=== PATIENT | female | born 1930 | race Caucasian/White ===

== ENCOUNTER 2017-02-21 14:44 | Emergency (ER) | payer MEDICARE, OTHER ==
[~2017-02-21] VITALS: Ht 157.5 cm; Wt 68.0 kg
[2017-02-21 14:47] VITALS: BP 185/80; PULSE 80; RESP 18; TEMP 98.1; O2SAT 97
[2017-02-21 15:08] VITALS: BP 177/72; PULSE 71; RESP 20; O2SAT 97
[2017-02-21] MEDS ORDERED: OMEP40CA2 PO (15:20)
[2017-02-21] MEDS ORDERED: FLUT50SP EACH NARE (15:20)
[2017-02-21] MEDS ORDERED: ALPR.25 PO (15:20)
[2017-02-21] MEDS ORDERED: BENA40TA PO (15:20)
[2017-02-21] MEDS ORDERED: PRAV20TA2 PO (15:20)
[2017-02-21] MEDS ORDERED: AMLO5TAB2 PO (15:20)
[2017-02-21 15:51] LABS: BLOOD, URINE NEG (NEG); GLUCOSE,URINE NEG (NEG); KETONE, URINE NEG (NEG); NITRITE,URINE NEG (NEG); PH, URINE 6.5 (5.0-8.5); SQUAMOUS EPITHELIAL CELL URINE 2 /hpf (0-5); URINE COLOR YELLOW (YELLW/STRAW)
[2017-02-21 15:53] LABS: COMMENT (UR) CULTURE INDICATED; CULTURE IF INDICATED CULTURE INDICATED
[2017-02-21 15:56] LABS: AUTOMATED NEUTROPHIL # 14.1 TH/MM3 (1.8-7.7); BASOPHIL # 0.1 TH/MM3 (0-0.2); BASOPHIL % 0.3 % (0.0-2.0); EOSINOPHIL # 0.2 TH/MM3 (0-0.4); HEMATOCRIT 33.7 % (35.0-46.0); HEMO FLAGS DIFF FINAL; LYMPH % 17.4 % (9.0-44.0); LYMPHOCYTE # 3.2 TH/MM3 (1.0-4.8); MEAN CORPUSCULAR HEMOGLOBIN 26.5 PG (27.0-34.0); MEAN CORPUSCULAR HGB CONC 32.7 % (32.0-36.0); MONO % 3.4 % (0.0-8.0); NEUT % 77.9 % (16.0-70.0); PLATELET COUNT 233 TH/MM3 (150-450); RED BLOOD COUNT 4.16 MIL/MM3 (4.00-5.30); RED CELL DISTRIBUTION WIDTH 16.8 % (11.6-17.2); WHITE BLOOD COUNT 18.2 TH/MM3 (4.0-11.0)
[2017-02-21 16:10] LABS: ALT (GPT) 37 U/L (10-53); ANION GAP 6 MEQ/L (5-15); AST (GOT) 23 U/L (15-37); BICARBONATE 25.4 MEQ/L (21.0-32.0); BLOOD UREA NITROGEN 11 MG/DL (7-18); CHLORIDE 104 MEQ/L (98-107); GLOMERULAR FILTRATION RATE 60 ML/MIN (>89); POTASSIUM 3.9 MEQ/L (3.5-5.1); SODIUM (NA) 135 MEQ/L (136-145)
[2017-02-21 16:12] LABS: ALKALINE PHOSPHATASE 317 U/L (45-117); TOTAL BILIRUBIN ADULT 0.5 MG/DL (0.2-1.0)
[2017-02-21] MEDS ORDERED: CEPH-460 PO (16:40)
--- NOTE | 2017-02-21 16:40 | PD ---
HPI Chief Complaint: Fever Time Seen by Provider: 15:09 Travel History International Travel<30 days: No Contact w/Intl Traveler<30days: No Traveled to known affect area: No History of Present Illness HPI This is an 86-year-old female who presents to the emergency department with several days of intermittent fevers and chills with a temperature up to 100.0, constant, moderate severity associated with some malaise. She did have some urinary urgency today but denies any abdominal pain, back pain or vomiting. She thinks she has a urinary tract infection. She went to an urgent care initially but they sent her here for further evaluation. PFSH Past Medical History Arthritis: Yes Cardiovascular Problems: Yes (aortic valve prolapse) High Cholesterol: Yes GERD: Yes Hypertension: Yes Tetanus Vaccination: > 5 Years Influenza Vaccination: Yes ?: Not Menopausal: Yes Social History Alcohol Use: No Tobacco Use: No Substance Use: No Allergies-Medications (Allergen,Severity, Reaction): Coded Allergies: codeine (Verified Allergy, Severe, 02/21/17) Reported Meds & Prescriptions Reported Meds & Active Scripts Active Reported Pravastatin 20 Mg Tab 20 Mg PO DAILY Omeprazole 40 Mg Cap 40 Mg PO DAILY Fluticasone Nasal [place] 50 Mcg/Act Naspr 50 Mcg EACH NARE BID 50 mcg/spray Benazepril (Benazepril HCl) 40 Mg Tab 40 Mg PO DAILY Amlodipine (Amlodipine Besylate) 5 Mg Tab 5 Mg PO DAILY Xanax (Alprazolam) 0.25 Mg Tab 0.25 Mg PO Q4H PRN Review of Systems Except as stated in HPI: all other systems reviewed are Neg Physical Exam Narrative GENERAL:Well appearing, no acute distress SKIN: Focused skin assessment warm and dry. HEAD: Atraumatic. Normocephalic. EYES: Pupils equal and round. No injection or drainage. ENT: Moist mucous membranes NECK: Trachea midline. CARDIOVASCULAR: Regular rate and rhythm. No murmur appreciated. RESPIRATORY: Clear to auscultation. Breath sounds equal bilaterally. GASTROINTESTINAL: Abdomen soft, non-tender, nondistended. MUSCULOSKELETAL: No obvious deformities. NEUROLOGICAL: Awake and alert. No obvious cranial nerve deficits. Moving all extremities. PSYCHIATRIC: Appropriate mood and affect; insight and judgment normal. Data Data Last Documented VS Vital Signs Date Time Temp Pulse Resp B/P (MAP) Pulse Ox O2 Delivery O2 Flow Rate FiO2 02/21/17 15:08 71 20 177/72 (107) 97 Room Air 02/21/17 14:47 98.1 Orders Orders Complete Blood Count With Diff (02/21/17 15:10) Comprehensive Metabolic Panel (02/21/17 15:10) Urinalysis - C+S If Indicated (02/21/17 15:10) Urine Culture (02/21/17 15:25) Labs Laboratory Tests Test 02/21/17 15:25 White Blood Count 18.2 TH/MM3 Red Blood Count 4.16 MIL/MM3 Hemoglobin 11.0 GM/DL Hematocrit 33.7 % Mean Corpuscular Volume 81.0 FL Mean Corpuscular Hemoglobin 26.5 PG Mean Corpuscular Hemoglobin Concent 32.7 % Red Cell Distribution Width 16.8 % Platelet Count 233 TH/MM3 Mean Platelet Volume 9.9 FL Neutrophils (%) (Auto) 77.9 % Lymphocytes (%) (Auto) 17.4 % Monocytes (%) (Auto) 3.4 % Eosinophils (%) (Auto) 1.0 % Basophils (%) (Auto) 0.3 % Neutrophils # (Auto) 14.1 TH/MM3 Lymphocytes # (Auto) 3.2 TH/MM3 Monocytes # (Auto) 0.6 TH/MM3 Eosinophils # (Auto) 0.2 TH/MM3 Basophils # (Auto) 0.1 TH/MM3 CBC Comment DIFF FINAL Differential Comment Urine Color YELLOW Urine Turbidity CLEAR Urine pH 6.5 Urine Specific [place] 1.003 Urine Protein NEG mg/dL Urine Glucose (UA) NEG mg/dL Urine Ketones NEG mg/dL Urine Occult Blood NEG Urine Nitrite NEG Urine Bilirubin NEG Urine Urobilinogen LESS THAN 2.0 MG/DL Urine Leukocyte Esterase LARGE Urine RBC 2 /hpf Urine WBC 16 /hpf Urine Squamous Epithelial Cells 2 /hpf Microscopic Urinalysis Comment CULTURE INDICATED Blood Urea Nitrogen 11 MG/DL Creatinine 0.89 MG/DL Random Glucose 93 MG/DL Total Protein 7.2 GM/DL Albumin 2.9 GM/DL Calcium Level 8.5 MG/DL Alkaline Phosphatase 317 U/L Aspartate Amino Transf (AST/SGOT) 23 U/L Alanine Aminotransferase (ALT/SGPT) 37 U/L Total Bilirubin 0.5 MG/DL Sodium Level 135 MEQ/L Potassium Level 3.9 MEQ/L Chloride Level 104 MEQ/L Carbon Dioxide Level 25.4 MEQ/L Anion Gap 6 MEQ/L Estimat Glomerular Filtration Rate 60 ML/MIN MDM Medical Decision Making Medical Screen Exam Complete: Yes Emergency Medical Condition: Yes Interpretation(s) Afebrile, no tachycardia, hypertensive Leukocytosis 78% neutrophils Electrolytes are reassuring Alkaline phosphatase is 317 Urinalysis demonstrates urinary tract infection Differential Diagnosis Urinary tract infection, pyelonephritis, influenza, sepsis Narrative Course This is an 86-year-old female who presents to the emergency department with some urinary urgency and intermittent fevers. She was placed on a monitor and an IV was established. Labs demonstrate a white count of 18. Vital signs are all reassuring with no SIRS criteria. Patient has evidence of a urinary tract infection on urinalysis. I had a conversation with the patient. I offered her admission discharge. She would much prefer to go home. Patient will be given a dose of IV antibiotics here in the emergency department and will be started on oral Keflex. She seems very reliable and I asked her that if she feels that all worse she should return to the emergency department immediately as we would consider admission for IV antibiotics. Diagnosis Primary Impression: Urinary tract infection Qualified Codes: N30.00 - Acute cystitis without hematuria Patient Instructions: General Instructions Additional Instructions: If you develop fever, persistent vomiting, back pain, or inability to eat return to the emergency department as your urine infection may have progressed to a kidney infection. Complete your antibiotics as prescribed. Stay well hydrated with Gatorade or water. Followup with your primary care physician in 2-3 days if your symptoms have not resolved. Med/Other Pt SpecificInfo: Prescription(s) given Scripts Cephalexin (Keflex) 500 Mg Cap 500 MG PO Q12H for Infection for 7 Days, #14 CAP 0 Refills Prov: Gracie Garcia MD 02/21/17 Disposition: DISCHARGE HOME Condition: Stable Gracie Garcia MD Feb 21, 2017 16:40
[2017-02-21] MEDS ORDERED: cefTRIAXone INJ 1,000 MG in SODIUM CHLORIDE 0.9% INJ 100 ML IV ONE (16:45)
[2017-02-21 17:38] VITALS: BP 168/67
[2017-02-22] MEDS ORDERED: CELE1CAP8 PO (10:48)
[2017-02-22] MEDS ORDERED: TYLE325T PO (15:55)
== END 2017-02-21 17:40 | disposition home or self-care (01) ==
LOC: NEPC 14:44
DX: N39.0 Urinary tract infection, site not specified (principal); D72.829 Elevated white blood cell count, unspecified; M19.90 Unspecified osteoarthritis, unspecified site; E78.00 Pure hypercholesterolemia, unspecified; K21.9 Gastro-esophageal reflux disease without esophagitis; I10 Essential (primary) hypertension; Z79.899 Other long term (current) drug therapy; Z88.5 Allergy status to narcotic agent
CPT/HCPCS: 80053; 81001; 85025; 87086; 96365; 99284; J0696

== ENCOUNTER 2017-02-22 10:01 | Emergency (ER) | payer MEDICARE, OTHER ==
[~2017-02-22 10:01] MED LIST: ALPR.25 PO; AMLO5TAB2 PO; BENA40TA PO; CEPH-460 PO; FLUT50SP EACH NARE; OMEP40CA2 PO; PRAV20TA2 PO
[2017-02-22 10:03] VITALS: BP 178/84; PULSE 84; RESP 20; TEMP 98.7; O2SAT 97
[2017-02-22] MEDS ORDERED: CELE1CAP8 PO (10:48)
[2017-02-22 11:40] LABS: AUTOMATED NEUTROPHIL # 11.6 TH/MM3 (1.8-7.7); BASOPHIL % 0.3 % (0.0-2.0); EOSINOPHIL # 0.2 TH/MM3 (0-0.4); HEMATOCRIT 33.8 % (35.0-46.0); HEMO FLAGS DIFF FINAL; LYMPH % 22.3 % (9.0-44.0); LYMPHOCYTE # 3.6 TH/MM3 (1.0-4.8); MEAN CELL VOLUME 81.4 FL (80.0-100.0); MEAN CORPUSCULAR HEMOGLOBIN 26.2 PG (27.0-34.0); MEAN CORPUSCULAR HGB CONC 32.2 % (32.0-36.0); MONO % 5.1 % (0.0-8.0); NEUT % 71.3 % (16.0-70.0); PLATELET COUNT 270 TH/MM3 (150-450); RED BLOOD COUNT 4.15 MIL/MM3 (4.00-5.30); RED CELL DISTRIBUTION WIDTH 17.3 % (11.6-17.2); WHITE BLOOD COUNT 16.3 TH/MM3 (4.0-11.0)
[2017-02-22 11:42] LABS: BLOOD, URINE NEG (NEG); GLUCOSE,URINE NEG (NEG); KETONE, URINE NEG (NEG); NITRITE,URINE NEG (NEG); PH, URINE 6.5 (5.0-8.5); SQUAMOUS EPITHELIAL CELL URINE <1 /hpf (0-5); TRANSITIONAL EPI CELLS, URINE <1 /hpf; URINE COLOR LIGHT-YELLOW (YELLW/STRAW)
[2017-02-22 11:43] LABS: COMMENT (UR) CULT NOT INDICATED; CULTURE IF INDICATED CULT NOT INDICATED
[2017-02-22 12:04] LABS: ALKALINE PHOSPHATASE 272 U/L (45-117); ALT (GPT) 25 U/L (10-53); ANION GAP 9 MEQ/L (5-15); BICARBONATE 22.1 MEQ/L (21.0-32.0); BLOOD UREA NITROGEN 8 MG/DL (7-18); CHLORIDE 104 MEQ/L (98-107); GLOMERULAR FILTRATION RATE 72 ML/MIN (>89); SODIUM (NA) 135 MEQ/L (136-145); TOTAL BILIRUBIN ADULT 0.5 MG/DL (0.2-1.0)
[2017-02-22 12:05] LABS: AST (GOT) 27 U/L (15-37); POTASSIUM 4.8 MEQ/L (3.5-5.1)
[2017-02-22] MEDS ORDERED: IOHEXOL 350 MG/ML 10 ML VIAL (for RAD DIAG) IVCONTRAST ONE (12:39)
[2017-02-22 12:46] LABS: APTT (PATIENT) 25.8 SEC (24.3-30.1); INTERNATIONAL NORMALIZED RATIO 1.1 RATIO; PROTHROMBIN TIME - PATIENT 10.7 SEC (9.8-11.6)
--- NOTE | 2017-02-22 13:17 | RADRPT ---
EXAM DATE/TIME: 02/22/2017 12:37 [facility] COMPARISON: No previous studies available for comparison. INDICATIONS : Right sided abdominal pain. IV CONTRAST: 81 cc Omnipaque 350 (iohexol) IV ORAL CONTRAST: No oral contrast ingested. RADIATION DOSE: 10.23 CTDIvol (mGy) MEDICAL HISTORY : Hypertension. SURGICAL HISTORY : None. ENCOUNTER: Initial ACUITY: 2 days PAIN SCALE: 3/10 LOCATION: Right flank TECHNIQUE: Volumetric scanning of the abdomen and pelvis was performed. Using automated exposure control and ad justment of the mA and/or kV according to patient size, radiation dose was kept as low as reasonably achievable to obtain optimal diagnostic quality images. DICOM format image data is available electro nically for review and comparison. FINDINGS: LOWER LUNGS: There is a smooth margin mass in the right lateral costophrenic angle measuring 1.7 cm. A similar elizabeth earing mass is seen in the left lower lateral lung measuring 1.4 cm. Moderate size hiatus hernia cont aining the fundus of the stomach. LIVER: Homogeneous density without lesion. There is no dilation of the biliary tree. No calcified gallston es. SPLEEN: Normal size without lesion. PANCREAS: Within normal limits. KIDNEYS: Normal in size and shape. There is no mass, stone or hydronephrosis. 2.0 cm cyst upper pole right ki dney. ADRENAL GLANDS: Within normal limits. VASCULAR: There is no aortic aneurysm. Diffuse wall calcification. BOWEL/MESENTERY: Nondilated loops of small or large bowel. Several tiny sigmoid diverticula. ABDOMINAL WALL: Within normal limits. RETROPERITONEUM: A few retroperitoneal lymph nodes measure up to 1.3 cm; largest is in the aortocaval region. BLADDER: No wall thickening or mass. REPRODUCTIVE: Within normal limits. INGUINAL: There is no lymphadenopathy or hernia. MUSCULOSKELETAL: Within normal limits for patient age. CONCLUSION: 1. Bilateral lower lung masses measuring up to 1.[address] thorax to evaluate for additional lesions and to evaluate for mediastinal adenopathy. 2. Moderate size hiatus hernia containing the fundus of the stomach. 3. A few mildly prominent retroperitoneal nodes, nonspecific in appearance, measuring up to 1.2 cm. Chung Nichole MD on February 22, 2017 at 13:12 Board Certified Radiologist. This report was verified electronically.
--- NOTE | 2017-02-22 13:33 | PD ---
HPI Chief Complaint: Medical Clearance Time Seen by Provider: 11:04 Travel History International Travel<30 days: No Contact w/Intl Traveler<30days: No Traveled to known affect area: No History of Present Illness HPI 86yo F presents to the ED with c/o abdominal pain today. Pt has been having intermittent abdominal pain for a few weeks. +Increased urinary frequency. Pt was seen here yesterday and was instructed to return if symptoms worsen. Denies any fever, chest pain, sob, n/v, hematuria, focal weakness or numbness. Pain is intermittent and right flank region. PFSH Past Medical History Arthritis: Yes Cardiovascular Problems: Yes (aortic valve prolapse) High Cholesterol: Yes GERD: Yes Hypertension: Yes Menopausal: Yes Past Surgical History Genitourinary Surgery: Yes (rectal fissure sx) Social History Alcohol Use: Yes (occas) Tobacco Use: No Substance Use: No Allergies-Medications (Allergen,Severity, Reaction): Coded Allergies: codeine (Verified Allergy, Severe, 02/22/17) Reported Meds & Prescriptions Reported Meds & Active Scripts Active Keflex (Cephalexin) 500 Mg Cap 500 Mg PO Q12H 7 Days Reported Celecoxib 200 Mg Cap 200 Mg PO BID Pravastatin 20 Mg Tab 20 Mg PO DAILY Omeprazole 40 Mg Cap 40 Mg PO DAILY Fluticasone Nasal [place] 50 Mcg/Act Naspr 50 Mcg EACH NARE BID 50 mcg/spray Benazepril (Benazepril HCl) 40 Mg Tab 40 Mg PO DAILY Amlodipine (Amlodipine Besylate) 5 Mg Tab 5 Mg PO DAILY Xanax (Alprazolam) 0.25 Mg Tab 0.25 Mg PO Q4H PRN Review of Systems Except as stated in HPI: all other systems reviewed are Neg Physical Exam Narrative GENERAL: 86yo F not in distress. SKIN: Focused skin assessment warm/dry. HEAD: Atraumatic. Normocephalic. EYES: Pupils equal and round. No scleral icterus. No injection or drainage. CARDIOVASCULAR: Regular rate and rhythm. No murmur appreciated. RESPIRATORY: No accessory muscle use. Clear to auscultation. Breath sounds equal bilaterally. GASTROINTESTINAL: Abdomen soft, +TTP mid right abdomen. No rebound tenderness or guarding. BACK: No CVA tenderness bilaterally. MUSCULOSKELETAL: No obvious deformities. No clubbing. No cyanosis. No edema. NEUROLOGICAL: Awake and alert. No obvious cranial nerve deficits. Motor grossly within normal limits. Normal speech. PSYCHIATRIC: Appropriate mood and affect; insight and judgment normal. Data Data Last Documented VS Vital Signs Date Time Temp Pulse Resp B/P (MAP) Pulse Ox O2 Delivery O2 Flow Rate FiO2 02/22/17 13:56 97.7 72 16 162/73 (102) 99 Room Air Orders Orders Complete Blood Count With Diff (02/22/17 11:12) Comprehensive Metabolic Panel (02/22/17 11:12) Lipase (02/22/17 11:12) Prothrombin Time / Inr (Pt) (02/22/17 11:12) Act Partial Throm Time (Ptt) (02/22/17 11:12) Urinalysis - C+S If Indicated (02/22/17 11:12) Ct Abd/Pel W Iv Contrast(Rout) (02/22/17 11:12) Iohexol 350 Inj (Omnipaque 350 Inj) (02/22/17 12:39) Us Abdomen Gallbladder (02/22/17 ) Labs Laboratory Tests Test 02/22/17 11:11 02/22/17 12:00 White Blood Count 16.3 TH/MM3 Red Blood Count 4.15 MIL/MM3 Hemoglobin 10.9 GM/DL Hematocrit 33.8 % Mean Corpuscular Volume 81.4 FL Mean Corpuscular Hemoglobin 26.2 PG Mean Corpuscular Hemoglobin Concent 32.2 % Red Cell Distribution Width 17.3 % Platelet Count 270 TH/MM3 Mean Platelet Volume 10.2 FL Neutrophils (%) (Auto) 71.3 % Lymphocytes (%) (Auto) 22.3 % Monocytes (%) (Auto) 5.1 % Eosinophils (%) (Auto) 1.0 % Basophils (%) (Auto) 0.3 % Neutrophils # (Auto) 11.6 TH/MM3 Lymphocytes # (Auto) 3.6 TH/MM3 Monocytes # (Auto) 0.8 TH/MM3 Eosinophils # (Auto) 0.2 TH/MM3 Basophils # (Auto) 0.0 TH/MM3 CBC Comment DIFF FINAL Differential Comment Urine Color LIGHT-YELLOW Urine Turbidity CLEAR Urine pH 6.5 Urine Specific [place] 1.003 Urine Protein NEG mg/dL Urine Glucose (UA) NEG mg/dL Urine Ketones NEG mg/dL Urine Occult Blood NEG Urine Nitrite NEG Urine Bilirubin NEG Urine Urobilinogen LESS THAN 2.0 MG/DL Urine Leukocyte Esterase NEG Urine RBC LESS THAN 1 /hpf Urine WBC 1 /hpf Urine Squamous Epithelial Cells <1 /hpf Urine Transitional Epithelial Cells <1 /hpf Microscopic Urinalysis Comment CULT NOT INDICATED Blood Urea Nitrogen 8 MG/DL Creatinine 0.76 MG/DL Random Glucose 81 MG/DL Total Protein 7.4 GM/DL Albumin 2.8 GM/DL Calcium Level 8.9 MG/DL Alkaline Phosphatase 272 U/L Aspartate Amino Transf (AST/SGOT) 27 U/L Alanine Aminotransferase (ALT/SGPT) 25 U/L Total Bilirubin 0.5 MG/DL Sodium Level 135 MEQ/L Potassium Level 4.8 MEQ/L Chloride Level 104 MEQ/L Carbon Dioxide Level 22.1 MEQ/L Anion Gap 9 MEQ/L Estimat Glomerular Filtration Rate 72 ML/MIN Lipase 254 U/L Prothrombin Time 10.7 SEC Prothromb Time International Ratio 1.1 RATIO Activated Partial Thromboplast Time 25.8 SEC MDM Medical Decision Making Medical Screen Exam Complete: Yes Emergency Medical Condition: Yes Differential Diagnosis Pyelonephritis vs. colitis vs. appendicitis Narrative Course 86yo F with UTI that was diagnosed yesterday here with abdominal pain. Said she does not want any pain medication now and it is intermittent. Pt given ceftriaxone yesterday and discharge with keflex. Labs reviewed, leukocytosis at 16.3 which is trending down from 18.2 from yesterday. H/H at baseline. CMP unremarkable except elevated alk phos which is also trending down from yesterday. UA showed no leukocyte. WBC 1. Culture not indicated. CT a/p showed incidental finding of mass in right lateral costophrenic angle measuring 1.7cm and mass in left lateral lung measuring 1.4cm. Hiatal hernia. Kidneys normal. cyst in right upper pole kidney. A few retroperitoneal lymph nodes. Pt informed of this and given a copy of it to have outpatient CT chest. Pt has no respiratory complaint and wants to follow up with CT chest as outpatient. US gallbladder again show right kidney cyst but no evidence of cholelithiasis or acute cholecystitis. Pt is well appearing and lab work is improving. Tolerating PO. Return precautions given. Diagnosis Primary Impression: Abdominal pain Qualified Codes: R10.11 - Right upper quadrant pain Patient Instructions: General Instructions Departure Forms: Tests/Procedures Additional Instructions: Please follow up with your PMD for the lung masses and further evaluation of abdominal pain if needed. Return to the ED if symptoms worsen. Med/Other Pt SpecificInfo: Prescription(s) given Scripts Acetaminophen (Tylenol) 325 Mg Tab 650 MG PO Q6H Y for PAIN SCALE 1 TO 4, #20 TAB 0 Refills Prov: Raquel Roldan DO 02/22/17 Disposition: 01 DISCHARGE HOME Condition: Stable Raquel Roldan DO Feb 22, 2017 13:33
[2017-02-22 13:56] VITALS: BP 162/73; PULSE 72; RESP 16; TEMP 97.7; O2SAT 99
--- NOTE | 2017-02-22 15:28 | RADRPT ---
EXAM DATE/TIME: 02/22/2017 14:06 [facility] COMPARISON: CT ABDOMEN & PELVIS W CONTRAST, February 22, 2017, 12:37. INDICATIONS : Right upper quadrant pain. MEDICAL HISTORY : Hypercholesterolemia. Hypertension. Gastroesophageal reflux disease. Arthritis. SURGICAL HISTORY : Total knee replacement, left. Rotator cuff, left. Aortic valve prolapse. ENCOUNTER: Initial ACUITY: 1 week PAIN SCORE: 4/10 LOCATION: Right upper quadrant MEASUREMENTS: LIVER: 17.6 cm length COMMON DUCT: 3 mm RIGHT KIDNEY: 10.0 x 4.2 x 5.5 cm FINDINGS: LIVER: Normal echotexture without focal lesion or ductal dilatation. COMMON DUCT: No intraluminal mass or stone visualized. GALLBLADDER: Contains no stones, demonstrates no wall thickening or pericholecystic fluid. PANCREAS: The visualized portions are within normal limits. RIGHT KIDNEY: There is a 2.0 x 2.0 x 2.7 cm hypoechoic cystic lesion arising from the superior pole of the right ki dney without focal nodularity or vascularity. Right kidney is otherwise unremarkable. CONCLUSION: 1. 2.0 x 2.0 x 2.7 cm slightly complex cyst in the superior pole of the right kidney. 2. Otherwise, unremarkable ultrasound examination of the right upper quadrant. Specifically, no sonog raphic evidence for cholelithiasis or acute cholecystitis. Dirk Schulz MD on February 22, 2017 at 15:23 Board Certified Radiologist. This report was verified electronically.
[2017-02-22] MEDS ORDERED: TYLE325T PO (15:55)
[2017-02-22 16:00] VITALS: BP 130/72; TEMP 97.8
== END 2017-02-22 16:00 | disposition home or self-care (01) ==
LOC: NEPC 10:01
DX: R10.11 Right upper quadrant pain (principal); D72.829 Elevated white blood cell count, unspecified; R91.8 Other nonspecific abnormal finding of lung field; K44.9 Diaphragmatic hernia without obstruction or gangrene; N28.1 Cyst of kidney, acquired; M19.90 Unspecified osteoarthritis, unspecified site; E78.00 Pure hypercholesterolemia, unspecified; K21.9 Gastro-esophageal reflux disease without esophagitis; I10 Essential (primary) hypertension
CPT/HCPCS: 74177; 76705; 80053; 81001; 83690; 85025; 85610; 85730; 99285; Q9967